=== PATIENT | male | born 1975 | race Caucasian/White ===

== ENCOUNTER → 2017-10-25 21:41 | Outpatient (CLI) | payer MEDICARE, MEDICAID, SELFPAY | DX: G47.33 Obstructive sleep apnea (adult) (pediatric) (principal) | CPT/HCPCS: 95811 ==

== ENCOUNTER 2020-10-04 22:35 | Emergency (ER) | payer MEDICARE, MEDICAID, SELFPAY ==
[2020-10-04 22:39] VITALS: BP 139/83; PULSE 101; RESP 17; TEMP 36.7; O2SAT 96; BMI 35.3
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
--- NOTE | 2020-10-04 23:21 | ED.RN ---
CRISIS PAGED TO TALK TO PATIENT AT THIS TIME
--- NOTE | 2020-10-04 23:36 | ED.RN ---
CRISIS SPEAKING WITH PATIENT AT THIS TIME
[2020-10-05 00:16] LABS: Absolute Lymphocyte Count 2.47 X10^3/uL (0.83-4.51); Absolute Neutrophil Count 8.1 X10^3/uL (2.0-7.7); Basophil# 0.07 X10^3/uL; Basophil% 0.6 % (0-1); Eosinophil# 0.27 X10^3/uL; Eosinophils% 2.2 % (0-5); Hematocrit 49.9 % (40-54); Hemoglobin 16.7 g/dL (13.0-16.5); Lymphocyte # 2.47 X10^3/ul (4.0); Lymphocyte % 20.5 % (19-41); Mean Corp Hgb Conc 33.5 g/dL (32-36); Mean Corpuscular Hgb 31.3 pg (27.0-32.0); Mean Corpuscular Volume 93.4 fL (80-94); Mean Platelet Vol. 9.4 fl (6.2-12.0); Monocyte# 1.07 X10^3/uL; Monocyte% 8.9 % (0-10); NRBC Flagged by Analyzer 0 % (0-5); Neutrophil # 8.12 X10^3/uL (2.7-7.7); Neutrophil % 67.3 % (47-70); Platelet Count 322 K/mm3 (150-450); RBC Distribution Width CV 12.2 % (11.6-14.6); RBC Distribution Width SD 42.3 fl (35.1-43.9); Red Blood Count 5.34 M/mm3 (4.6-6.2); White Blood Count 12.1 K/mm3 (4.4-11.0)
[2020-10-05 00:30] LABS: Anion Gap 2 (5-15); BUN 13 mg/dL (7-18); BUN/Creat Ratio 12.7 RATIO (10-20); Calcium,Total 9.4 mg/dL (8.5-10.1); Chloride 103 mmol/L (98-107); Creatinine, Serum 1.02 mg/dL (0.70-1.30); EST Glomerular Filtration Rate 85 mL/min (>60); Est Glom Filt Rate - Afr Amer 102 mL/min (>60); Estimated Creatinine Clearance 96.42 ml/min; Glucose 72 mg/dL (74-106); Potassium 3.7 mmol/L (3.5-5.1); Sodium Level 137 mmol/L (136-145)
[2020-10-05 00:39] LABS: Alcohol, Blood (Medical)-Serum < 3.0 mg/dL
[2020-10-05 01:10] LABS: Amphetamine Urine VISTA POSITIVE (<1000 ng/mL); Barbiturate Urine VISTA NEGATIVE (< 200 ng/mL); Benzodiazepine Urine VISTA NEGATIVE (< 200 ng/mL); Cocaine Urine VISTA NEGATIVE (< 300 ng/mL); Ecstacy Urine VISTA NEGATIVE (< 500 ng/mL); Methadone Urine VISTA NEGATIVE (< 300 ng/mL); PCP Urine VISTA NEGATIVE (< 25 ng/mL); THC Urine VISTA NEGATIVE (< 50 ng/mL); Vista UDS pH Range 5
--- NOTE | 2020-10-05 01:19 | ED.RN ---
FAXED LAB RESULTS OVER TO CRISIS.
[2020-10-05 03:00] VITALS: RESP 16
--- NOTE | 2020-10-05 03:39 | ED.RN ---
PT AMBULATES OUT OF DEPARTMENT WITHOUT DIFFICULTY. PT STATES HE HAS A PLAN TO GO TO HIS FRIENDS HOUSE IN [place], GO GET HIS MED AND FOLLOW UP WITH THE COUNSELING CENTER. DR. NOWAK AWARE OF PLAN AND OKAY'D FOR PT TO LEAVE.
== END 2020-10-05 03:42 | disposition home or self-care (01) ==
PROVIDERS: Emergency Provider Student in an Organized Health Care Education/Training Program
DX: F20.9 Schizophrenia, unspecified (principal); F31.9 Bipolar disorder, unspecified; I10 Essential (primary) hypertension; E11.9 Type 2 diabetes mellitus without complications; Z79.84 Long term (current) use of oral hypoglycemic drugs; Z79.899 Other long term (current) drug therapy; F17.200 Nicotine dependence, unspecified, uncomplicated
CPT/HCPCS: 36415; 80048; 80307; 82077; 85025; 87426; 99282

== ENCOUNTER 2020-10-06 04:27 | Emergency (ER) | payer MEDICARE, MEDICAID, SELFPAY ==
[2020-10-06 04:29] VITALS: BP 140/78; PULSE 95; RESP 16; TEMP 36.8; O2SAT 98; BMI 33.5
--- NOTE | 2020-10-06 04:37 | ED.RN ---
THIS NURSE IS UNABLE TO UNDERSTAND THE PT WHEN HE IS SPEAKING. QUICKLY FALLS ASLEEP WHILE ATTEMPTING TO COMPLETE ASSESSMENT. PT FALLING ASLEEP IN BETWEEN QUESTIONS. PT ADMITS HE IS HOMELESS AND HE WAS COLD OUTSIDE.
[2020-10-06 04:46] LABS: Bedside Glucose 187 mg/dL (70-110)
--- NOTE | 2020-10-06 04:46 | ED.VIS.GEN ---
History of Present Illness Chief Complaint: General Illness Narrative: Patient presenting for evaluation by EMS secondary to homelessness. Patient is currently homeless and is living on the streets. He apparently was wandering around tonight without a place to stay. EMS was contacted and the patient was brought to the emergency department. Patient does have an underlying psychiatric history. He is on Seroquel, has an underlying history of schizophrenia. He does hear voices intermittently. He denies that he suicidal or homicidal. He denies any command hallucinations or concerns for his safety at this time. He was seen in the emergency department for similar episode 2 days ago, and was given resources within the counseling center was not felt to be a danger to himself and was discharged. Patient is denying any somatic complaints at this time other than the fact that he is hungry. Past Medical History - Allergies and Home Meds Allergies/Adverse Reactions: Allergies No Known Allergies Allergy (Verified 10/06/20 04:32) Primary Care Physician: Care Physician,No Primary [Primary Care Provider] - Prior records reviewed: Yes Past Medical History: - - Diabetes, hypertension, schizophrenia Surgical History: noncontributory Lives: Homeless Smoking Status: Unknown if ever smoked Alcohol: None - Denies alcohol use Drugs: - - History of amphetamine use Review of Systems General: Reports: - - Patient is hungry Eyes: Denies: Visual changes - bilaterally, Diplopia ENT: Denies: Rhinorrhea, Sore throat Cardiovascular: Denies: Chest pain, Palpitations Respiratory: Denies: Dyspnea, Cough, Dyspnea on exertion Gastrointestinal: Denies: Abdominal pain, Nausea, Vomiting, Diarrhea, Melena, Hematochezia Genitourinary: Denies: Dysuria, Hematuria, Frequency Musculoskeletal: Denies: Back pain, Extremity Pain Skin: Denies: Rash, Wounds Neurological: Denies: Headache, Weakness, Numbness Psych: Reports: - - Patient does endorse some hallucinations. Denies: Depression, Anxiety, Suicidal thoughts, Suicidal ideations Physical Exam Vital Signs/Narrative: Vital Signs Temp Pulse Resp BP Pulse Ox 10/06/20 04:29 98.2 F 95 16 140/78 H 98 Inital Vital Signs reviewed: Yes General: Well nourished, Unkempt Head: Normocephalic, Atraumatic Eyes: Perrl, EOMI ENT: Moist mucous membranes, No rhinorrhea Neck: Supple, Nontender Cardiovascular: Regular rate, Regular rhythm, No murmurs Respiratory: No distress, CTA bilaterally, Chest nontender Abdomen: Soft, Nontender, Nondistended, Normal bowel sounds Extremities: Nontender, No edema, - - Hands are cold to touch with somewhat delayed capillary refill Skin: Normal color, No rash Neurological: Alert, - - Patient has no apparent lateralizing deficits. He has slurred difficult to understand speech which from review of the patient's chart seems to be at his baseline. Diagnostic/Tx/Re-eval - Medical Decision Making Patient presented to the emergency department basically due to homelessness. Patient does not appear to have hypothermia or frostbite or frostnip at this time. He was given a warm blanket. Blood glucose was checked on the patient he was found to be in the 180s not hypoglycemic. Patient seems to have this element of difficult understand speech which appears to be at his baseline. He does not appear to be acutely psychiatrically unstable. Patient will be allowed to rest in the emergency department as we currently have capacity until morning at which point he would be discharged. Patient is to follow-up with the counseling center as previously instructed, and was instructed to utilize the [facility] for [facility]. ED Disposition - Plan for ED Patient: Disposition: Home or Assisted Living Diagnosis: Homelessness Instructions: ED Medical Screening Exam, Nonemergent Referrals: Counseling,Center [GROUP OF PHYSICIANS] - As soon as possible
--- NOTE | 2020-10-06 07:25 | ED.RN ---
Pt was being allowed to stay here until morning to sleep off his high. pt woke up and urinated all over the floor. Pt told he could leave and was discharged
== END 2020-10-06 07:27 | disposition home or self-care (01) ==
PROVIDERS: Emergency Provider Emergency Medicine
DX: F20.9 Schizophrenia, unspecified (principal); I10 Essential (primary) hypertension; Z59.0 Homelessness; E11.9 Type 2 diabetes mellitus without complications; Z79.84 Long term (current) use of oral hypoglycemic drugs; Z79.899 Other long term (current) drug therapy
CPT/HCPCS: 82962; 99284

== ENCOUNTER 2020-10-07 03:56 | Emergency (ER) | payer MEDICARE, MEDICAID, SELFPAY ==
[2020-10-06 04:29] VITALS: BMI 33.5
[2020-10-07] VITALS (7 sets, daily range): BP systolic 146–168; BP diastolic 80–110; PULSE 60–86; RESP 14–18; TEMP 36.5; O2SAT 95–99; BMI 35.3
[2020-10-07 04:55] LABS: Absolute Lymphocyte Count 1.99 X10^3/uL (0.83-4.51); Absolute Neutrophil Count 7.3 X10^3/uL (2.0-7.7); Basophil# 0.06 X10^3/uL; Basophil% 0.6 % (0-1); Eosinophil# 0.17 X10^3/uL; Eosinophils% 1.6 % (0-5); Hemoglobin 15.9 g/dL (13.0-16.5); Lymphocyte # 1.99 X10^3/ul (4.0); Lymphocyte % 19.3 % (19-41); Mean Corp Hgb Conc 32.4 g/dL (32-36); Mean Corpuscular Hgb 30.9 pg (27.0-32.0); Mean Corpuscular Volume 95.1 fL (80-94); Mean Platelet Vol. 9.4 fl (6.2-12.0); Monocyte# 0.73 X10^3/uL; Monocyte% 7.1 % (0-10); NRBC Flagged by Analyzer 0 % (0-5); Neutrophil % 70.8 % (47-70); Platelet Count 324 K/mm3 (150-450); RBC Distribution Width CV 12.4 % (11.6-14.6); RBC Distribution Width SD 43.7 fl (35.1-43.9); Red Blood Count 5.15 M/mm3 (4.6-6.2); White Blood Count 10.3 K/mm3 (4.4-11.0)
[2020-10-07 05:14] LABS: Alcohol, Blood (Medical)-Serum < 3.0 mg/dL
[2020-10-07 05:17] LABS: Anion Gap 6 (5-15); BUN 9 mg/dL (7-18); BUN/Creat Ratio 9.3 RATIO (10-20); Calcium,Total 9.1 mg/dL (8.5-10.1); Chloride 103 mmol/L (98-107); Creatinine, Serum 0.97 mg/dL (0.70-1.30); EST Glomerular Filtration Rate 90 mL/min (>60); Est Glom Filt Rate - Afr Amer 108 mL/min (>60); Estimated Creatinine Clearance 101.39 ml/min; Glucose 166 mg/dL (74-106); Potassium 3.8 mmol/L (3.5-5.1); Sodium Level 138 mmol/L (136-145)
--- NOTE | 2020-10-07 05:58 | ED.DCSUM_ITS ---
- ER Visit Summary Date of Service: 10/07/20 Chief Complaint: [Depression and suicidal ideation] History of Present Illness: The patient is a 45 M [presents to the emergency department today via police escort. Patient apparently was walking down a dark highway when police stopped him. Patient has been to our emergency department each of the last prior 2 nights. Patient has history of schizophrenia and apparently is from the [place] area. Patient states that he has been feeling more depressed of late and has been having suicidal thoughts. Patient has been having thoughts of jumping out in front of a snowplow. He has been hearing voices but really cannot tell me what they say to him. He denies any homicidal ideations. He denies recent illness. Patient is currently homeless.] Physical Examination: [HEENT-PERRLA, EOMI. Cranial nerves II through XII grossly intact. TMs clear. Mucous membranes moist. No adenopathy. Cardiovascular-regular rate and rhythm without murmur or ectopy Lungs-clear to auscultation, chest wall stable without crepitus or subcu emphysema Abdomen-normoactive bowel sounds, soft, nontender, no rebound or rigidity, no peritoneal signs. Extremities-intact ?4, normal range of motion, normal pulses, atraumatic] Test Results: [CBC with differential was normal. Chemistries unremarkable. Toxicology screen was negative. Alcohol was negative. COVID-19 test negative.] Emergency Department Course and Treatment: [Patient was evaluated by crisis and they will attempt to find placement for patient] Treatment Plan: [Transfer to psychiatric facility] Disposition: [Transfer] Impression: [Depression Suicidal ideation] This note was generated with [employer] dictation software. It may contain incorrect words, spelling, and punctuation that were not noted in review of the chart prior to signing ED Disposition - Plan for ED Patient: Referrals: Care Physician,No Primary [Primary Care Provider] -
--- NOTE | 2020-10-07 06:24 | ED.RN ---
CRISIS PAGED AT [id number], AND REPORT FAXED
--- NOTE | 2020-10-07 06:54 | ED.RN ---
crisis called and is speaking with patient at this time
--- NOTE | 2020-10-07 09:04 | ED.RN ---
attempted to call report to Guillermo Mario, no answer.
--- NOTE | 2020-10-07 09:07 | ED.RN ---
2nd attempt to call [place] for report, no answer.
--- NOTE | 2020-10-07 09:31 | ED.RN ---
beltran will call back.
--- NOTE | 2020-10-07 10:11 | ED.RN ---
report given to veronica
== END 2020-10-07 10:45 ==
LOC: ED 04:35
PROVIDERS: Emergency Provider Emergency Medicine
DX: F32.9 Major depressive disorder, single episode, unspecified (principal); R45.851 Suicidal ideations; F20.9 Schizophrenia, unspecified; Z59.0 Homelessness; Z79.899 Other long term (current) drug therapy; Z72.0 Tobacco use
CPT/HCPCS: 80048; 80307; 82077; 85025; 87426; 99285

== ENCOUNTER 2020-10-14 20:22 | Emergency (ER) | payer MEDICARE, MEDICAID, SELFPAY ==
[2020-10-07 03:59] VITALS: BMI 35.3
[2020-10-14 20:25] VITALS: BP 146/89; PULSE 100; RESP 16; TEMP 36.7; O2SAT 96; BMI 33.5
--- NOTE | 2020-10-14 21:12 | ED.DCSUM_ITS ---
History of Present Illness Chief Complaint: Other, Pain/Inj Detail of Chief Complaint: Arthralgias/body aches Informant: Patient Onset: Days - Several unsure of exactly how many Context: Gradual Onset Timing: Continuous Quality: Achy Location: All over especially joints Current Severity: Severe Maximum Severity: Severe Worsened by: Moving Relieved by: Remaining still Associated Symptoms: Feels cold Narrative: Patient presents saying that he also wants to know if we have any resources. He states that he inadvertently lost his medications and has been out of them for the last week or 1.5 weeks, for schizophrenia and prediabetes. He is feeling achy all over. He denies being around anybody that he knows of with COVID-19 but states that he is homeless and wants to know if we have a place for him to stay. He presents at night. He denies loss of taste/smell, fevers or chills, cough, shortness of breath, chest or abdominal pain, nausea, vomiting, diarrhea. - Past Medical History (1) Schizophrenia Status: Chronic (2) Prediabetes Status: Chronic Past Medical History - Allergies and Home Meds Allergies/Adverse Reactions: Allergies No Known Allergies Allergy (Verified 10/14/20 20:24) Primary Care Physician: Care Physician,No Primary [Primary Care Provider] - Lives: Homeless Smoking Status: Current every day smoker Review of Systems General: Reports: Malaise. Denies: Chills, Fever, Sweats Eyes: Denies: Visual changes - bilaterally, Diplopia ENT: Denies: Rhinorrhea, Sore throat Cardiovascular: Denies: Chest pain, Palpitations Respiratory: Denies: Dyspnea, Cough, Dyspnea on exertion Gastrointestinal: Denies: Abdominal pain, Nausea, Vomiting, Diarrhea, Melena, Hematochezia Genitourinary: Denies: Dysuria, Hematuria, Frequency Musculoskeletal: Reports: Myalgias, Arthralgias. Denies: Neck pain, Back pain, Swelling, Extremity Pain Skin: Denies: Rash, Wounds Neurological: Denies: Headache, Weakness, Numbness Endocrine: Reports: Cold intolerance Physical Exam Vital Signs/Narrative: Vital Signs Temp Pulse Resp BP Pulse Ox 10/14/20 20:25 98.1 F 100 16 146/89 H 96 Inital Vital Signs reviewed: Yes General: Well nourished, Well developed, Unkempt, No Acute Distress Head: Normocephalic, Atraumatic Eyes: Perrl, EOMI ENT: Moist mucous membranes, No rhinorrhea Neck: Supple, Nontender Cardiovascular: Regular rate, Regular rhythm, No murmurs. Negative for: Tachycardia Respiratory: No distress, CTA bilaterally, Chest nontender Abdomen: Soft, Nontender, Nondistended, Normal bowel sounds Back: Nontender, Normal Inspection Extremities: Nontender, No edema, - - I am able to range his arms and legs without any difficulty. No joints are erythematous or swollen. He is able to walk.. Negative for: Calf Tenderness Skin: Normal color, No rash, No Trauma Neurological: Alert, Oriented x3, Cranial nerves II-XII grossly intact, Normal Strength, Normal Sensation Psychological: Normal Mood, - - Anxious and somewhat tremulous. Not delusional or objectively hallucinating. Logical goal-directed thoughts. No suicidal or homicidal ideation verbalized. Diagnostic/Tx/Re-eval Laboratory Tests 10/14/20 10/14/20 10/14/20 Range/Units 22:31 22:31 21:55 WBC 12.0 H (4.4-11.0) K/mm3 RBC 4.76 (4.6-6.2) M/mm3 Hgb 14.6 (13.0-16.5) g/dL Hct 44.3 (40-54) % MCV 93.1 (80-94) fL MCH 30.7 (27.0-32.0) pg MCHC 33.0 (32-36) g/dL RDW Std Deviation 43.3 (35.1-43.9) fl RDW Coeff of Naomi 12.6 (11.6-14.6) % Plt Count 344 (150-450) K/mm3 MPV 9.6 (6.2-12.0) fl Immature Gran % (Auto) 0.700 (0.0-0.9) % Neut % (Auto) 66.5 (47-70) % Lymph % (Auto) 19.4 (19-41) % [place] % (Auto) 11.4 H (0-10) % Eos % (Auto) 1.5 (0-5) % Baso % (Auto) 0.5 (0-1) % Absolute Neuts (auto) 8.0 H (2.0-7.7) X10^3/uL Absolute Lymphs (auto) 2.33 (0.83-4.51) X10^3/uL Nucleated RBC % 0 (0-5) % Sodium 138 (136-145) mmol/L Potassium 3.9 (3.5-5.1) mmol/L Chloride 104 (98-107) mmol/L Carbon Dioxide 27.0 (21.0-32.0) mmol/L Anion Gap 7 (5-15) BUN 17 (7-18) mg/dL Creatinine 0.81 (0.70-1.30) mg/dL Estim Creat Clear Calc 121.42 ml/min Est GFR (MDRD) Af Amer 133 (>60) mL/min Est GFR (MDRD) Non-Af 110 (>60) mL/min BUN/Creatinine Ratio 20.9 H (10-20) RATIO Glucose 84 (74-106) mg/dL Calcium 9.0 (8.5-10.1) mg/dL Total Creatine Kinase 485 H (39-308) U/L TSH 2.17 (0.358-3.74) uIU/mL Urine Color (Yellow) Urine Clarity (Clear) Urine pH (5.0 - 8.0) Ur Specific [place] (1.002-1.030) Urine Protein (Negative) mg/dl Urine Glucose (UA) (Normal) mg/dl Urine Ketones (Negative) mg/dl Urine Occult Blood (Negative) /ul Urine Nitrite (Negative) Urine Bilirubin (Negative) mg/dL Urine Urobilinogen (Normal) mg/dl Ur Leukocyte Esterase (Negative) /ul Urine RBC (0-5) /hpf Urine WBC (0-5) /hpf Ur Squamous Epith Cells (0-5) /hpf Urine Bacteria (None Seen) /hpf Urine Mucus (<or=2+) /hpf Urine Opiates Screen (< 300 ng/mL) Urine Methadone Screen (< 300 ng/mL) Ur Barbiturates Screen (< 200 ng/mL) Ur Phencyclidine Scrn (< 25 ng/mL) Ur Amphetamines Screen (<1000 ng/mL) U Methamphetamin-MDMA (< 500 ng/mL) U Benzodiazepines Scrn (< 200 ng/mL) Urine Cocaine Screen (< 300 ng/mL) U Cannabinoids Screen (< 50 ng/mL) Ur Drug Screen Comment Ethyl Alcohol < 3.0 mg/dL POC Glucose (70-110) mg/dL 10/14/20 10/14/20 10/14/20 Range/Units 21:28 21:28 21:21 WBC (4.4-11.0) K/mm3 RBC (4.6-6.2) M/mm3 Hgb (13.0-16.5) g/dL Hct (40-54) % MCV (80-94) fL MCH (27.0-32.0) pg MCHC (32-36) g/dL RDW Std Deviation (35.1-43.9) fl RDW Coeff of Naomi (11.6-14.6) % Plt Count (150-450) K/mm3 MPV (6.2-12.0) fl Immature Gran % (Auto) (0.0-0.9) % Neut % (Auto) (47-70) % Lymph % (Auto) (19-41) % [place] % (Auto) (0-10) % Eos % (Auto) (0-5) % Baso % (Auto) (0-1) % Absolute Neuts (auto) (2.0-7.7) X10^3/uL Absolute Lymphs (auto) (0.83-4.51) X10^3/uL Nucleated RBC % (0-5) % Sodium (136-145) mmol/L Potassium (3.5-5.1) mmol/L Chloride (98-107) mmol/L Carbon Dioxide (21.0-32.0) mmol/L Anion Gap (5-15) BUN (7-18) mg/dL Creatinine (0.70-1.30) mg/dL Estim Creat Clear Calc ml/min Est GFR (MDRD) Af Amer (>60) mL/min Est GFR (MDRD) Non-Af (>60) mL/min BUN/Creatinine Ratio (10-20) RATIO Glucose (74-106) mg/dL Calcium (8.5-10.1) mg/dL Total Creatine Kinase (39-308) U/L TSH (0.358-3.74) uIU/mL Urine Color Yellow (Yellow) Urine Clarity Clear (Clear) Urine pH 5.0 (5.0 - 8.0) Ur Specific [place] 1.015 (1.002-1.030) Urine Protein Negative (Negative) mg/dl Urine Glucose (UA) Normal (Normal) mg/dl Urine Ketones Negative (Negative) mg/dl Urine Occult Blood Negative (Negative) /ul Urine Nitrite Negative (Negative) Urine Bilirubin Negative (Negative) mg/dL Urine Urobilinogen Normal (Normal) mg/dl Ur Leukocyte Esterase Negative (Negative) /ul Urine RBC 0 SEEN (0-5) /hpf Urine WBC 0 SEEN (0-5) /hpf Ur Squamous Epith Cells 0 SEEN (0-5) /hpf Urine Bacteria 0 SEEN (None Seen) /hpf Urine Mucus 0 SEEN (<or=2+) /hpf Urine Opiates Screen NEGATIVE (< 300 ng/mL) Urine Methadone Screen NEGATIVE (< 300 ng/mL) Ur Barbiturates Screen NEGATIVE (< 200 ng/mL) Ur Phencyclidine Scrn NEGATIVE (< 25 ng/mL) Ur Amphetamines Screen NEGATIVE (<1000 ng/mL) U Methamphetamin-MDMA NEGATIVE (< 500 ng/mL) U Benzodiazepines Scrn NEGATIVE (< 200 ng/mL) Urine Cocaine Screen NEGATIVE (< 300 ng/mL) U Cannabinoids Screen NEGATIVE (< 50 ng/mL) Ur Drug Screen Comment Ethyl Alcohol mg/dL POC Glucose 103 (70-110) mg/dL - Medical Decision Making Labs and toxicology are unremarkable except for a slightly elevated CPK. His urinalysis and renal function are normal, suggesting he does not have myoglobinuria or renal failure as result. He does not have high enough CPK to suggest rhabdomyolysis. All of the compartments of all 4 extremities are soft and nondistended nontender, he suggests that his primary reason for being here is that he is homeless. I advised that we are not penitentiary but we do screen people medically, which we have done and he has no medical emergency. I offered to refill his prescriptions for 2 weeks, and he was appreciative of this. He was given a couple of his medication doses here prior to discharge. ED Disposition - Plan for ED Patient: Disposition: Home or Assisted Living Diagnosis: Myalgia, Encounter for medication refill, Schizophrenia, Prediabetes Instructions: ED Myalgias Prescriptions: Glipizide [Glipizide ER] 10 mg PO DAILY #14 tab Prescription Printed Quetiapine Fumarate 200 mg PO DAILY #14 tab Prescription Printed Risperidone [Risperdal] 3 mg PO DAILY #14 tab Prescription Printed Lisinopril [Zestril] 20 mg PO DAILY #14 tab Prescription Printed Referrals: Ashley Reyes [NON-STAFF] - (within next 1-2 weeks -- call for appt)
[2020-10-14 21:31] LABS: Bedside Glucose 103 mg/dL (70-110)
[2020-10-14 21:40] LABS: Bacteria 0 SEEN /hpf (None Seen); Mucous, Urine 0 SEEN /hpf (<or=2+); Red Blood Cells-Urine 0 SEEN /hpf (0-5); Squamous Epithelial Cells - UA 0 SEEN /hpf (0-5); White Blood Cells 0 SEEN /hpf (0-5)
[2020-10-14 21:45] LABS: Color, Urine Yellow (Yellow); Glucose, Dipstick Normal (Normal); Ketone-Dipstick Negative (Negative); Leukocyte Esterase-Dipstick Negative /ul (Negative); Nitrite-Dipstick Negative (Negative); Occult Blood-Urine Negative /ul (Negative); Protein-Dipstick Negative (Negative); Specific Gravity, Urine 1.015 (1.002-1.030); Urine Bilirubin Dipstick Negative (Negative); Urine Clarity Clear (Clear); Urine Urobilinogen Normal (Normal)
[2020-10-14 22:13] LABS: Amphetamine Urine VISTA NEGATIVE (<1000 ng/mL); Barbiturate Urine VISTA NEGATIVE (< 200 ng/mL); Benzodiazepine Urine VISTA NEGATIVE (< 200 ng/mL); Cocaine Urine VISTA NEGATIVE (< 300 ng/mL); Ecstacy Urine VISTA NEGATIVE (< 500 ng/mL); Methadone Urine VISTA NEGATIVE (< 300 ng/mL); PCP Urine VISTA NEGATIVE (< 25 ng/mL); THC Urine VISTA NEGATIVE (< 50 ng/mL); Vista UDS pH Range 5
[2020-10-14 22:23] LABS: Anion Gap 7 (5-15); BUN 17 mg/dL (7-18); BUN/Creat Ratio 20.9 RATIO (10-20); CPK Total, Creatine Kinase 485 U/L (39-308); Chloride 104 mmol/L (98-107); Creatinine, Serum 0.81 mg/dL (0.70-1.30); EST Glomerular Filtration Rate 110 mL/min (>60); Est Glom Filt Rate - Afr Amer 133 mL/min (>60); Estimated Creatinine Clearance 121.42 ml/min; Glucose 84 mg/dL (74-106); Potassium 3.9 mmol/L (3.5-5.1); Sodium Level 138 mmol/L (136-145); Thyroid Stim Hormone (TSH) 2.17 uIU/mL (0.358-3.74)
[2020-10-14 22:36] LABS: Absolute Lymphocyte Count 2.33 X10^3/uL (0.83-4.51); Basophil# 0.06 X10^3/uL; Basophil% 0.5 % (0-1); Eosinophil# 0.18 X10^3/uL; Eosinophils% 1.5 % (0-5); Hematocrit 44.3 % (40-54); Hemoglobin 14.6 g/dL (13.0-16.5); Lymphocyte # 2.33 X10^3/ul (4.0); Lymphocyte % 19.4 % (19-41); Mean Corpuscular Hgb 30.7 pg (27.0-32.0); Mean Corpuscular Volume 93.1 fL (80-94); Mean Platelet Vol. 9.6 fl (6.2-12.0); Monocyte# 1.37 X10^3/uL; Monocyte% 11.4 % (0-10); NRBC Flagged by Analyzer 0 % (0-5); Neutrophil # 7.96 X10^3/uL (2.7-7.7); Neutrophil % 66.5 % (47-70); Platelet Count 344 K/mm3 (150-450); RBC Distribution Width CV 12.6 % (11.6-14.6); RBC Distribution Width SD 43.3 fl (35.1-43.9); Red Blood Count 4.76 M/mm3 (4.6-6.2)
[2020-10-14 23:00] LABS: Alcohol, Blood (Medical)-Serum < 3.0 mg/dL
[2020-10-14] MEDS: Ketorolac 30 MG/ML Syringe IM (23:13)
[2020-10-14] MEDS: RisperiDONE 1 MG Tablet 3 MG PO (23:43)
[2020-10-14] MEDS: QUEtiapine 100 MG Tablet 200 MG PO (23:43)
[2020-10-15 00:05] VITALS: RESP 16
== END 2020-10-15 00:06 | disposition home or self-care (01) ==
PROVIDERS: Emergency Provider Emergency Medicine
DX: M79.10 Myalgia, unspecified site (principal); Z76.0 Encounter for issue of repeat prescription; F20.9 Schizophrenia, unspecified; R73.03 Prediabetes; Z59.0 Homelessness; Z79.84 Long term (current) use of oral hypoglycemic drugs; Z79.899 Other long term (current) drug therapy; F17.200 Nicotine dependence, unspecified, uncomplicated
CPT/HCPCS: 80048; 80307; 81001; 82077; 82550; 82962; 84443; 85025; 96372; 99285

== ENCOUNTER 2020-11-30 02:00 | Emergency (ER) | payer MEDICARE, MEDICAID, SELFPAY ==
[2020-11-30 02:01] VITALS: BP 181/97; PULSE 78; RESP 16; TEMP 36.9; O2SAT 100; BMI 37.0
--- NOTE | 2020-11-30 02:14 | RAD_ITS ---
STUDY: X-RAY - RIGHT ANKLE REASON FOR EXAM: Male, 45 years old. injury TECHNIQUE: 3 view(s) of the ankle. COMPARISON: None. FINDINGS: Normal visualized distal tibia and fibula. Normal medial and lateral malleoli. Normal tibiotalar articulation and ankle mortise. Mild enthesophyte at the Achilles tendon insertion site otherwise normal visualized talus and calcaneus. The visualized subtalar, talonavicular, calcaneocuboid and tarsal articulations are normal. There is no demonstrated fracture. Soft tissue swelling surrounding the ankle mortise of the lateral malleolus. RAD/Ankle min 3 Views IMPRESSION: Soft tissue swelling as described otherwise normal x-ray examination of the ankle. Electronically Signed: Katerine Solomon MD at 3:12 EDT , Service support ,
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
[2020-11-30] MEDS: Ketorolac 30 MG/ML Syringe IM (02:27)
== END 2020-11-30 04:10 | disposition home or self-care (01) ==
PROVIDERS: Emergency Provider Emergency Medicine
DX: S93.401A Sprain of unspecified ligament of right ankle, initial encounter (principal); X50.1XXA Overexertion from prolonged static or awkward postures, initial encounter; Y93.02 Activity, running; Y92.9 Unspecified place or not applicable; E11.9 Type 2 diabetes mellitus without complications; F20.9 Schizophrenia, unspecified; F17.200 Nicotine dependence, unspecified, uncomplicated; Z79.84 Long term (current) use of oral hypoglycemic drugs; Z79.899 Other long term (current) drug therapy
CPT/HCPCS: 73610; 96372; 99284; A4216

== ENCOUNTER 2020-12-03 04:19 | Emergency (ER) | payer MEDICARE, MEDICAID, SELFPAY ==
[2020-12-03 04:22] VITALS: BP 155/99; PULSE 86; RESP 16; TEMP 37.2; O2SAT 99; BMI 34.0
--- NOTE | 2020-12-03 04:59 | ED.VIS.GEN ---
History of Present Illness Chief Complaint: Mental Health Informant: Patient Narrative: Patient is a 45-year-old male with history of schizophrenia and hypertension presenting for resources. Patient states his meds are wearing off and he cannot afford new medications. He supposed to be on Seroquel as well as lisinopril and a cholesterol medication. Patient states that he recently came to [place] was dropped off by his son and has not been able to get back to [place] where he has a check waiting for him. He states his doctor is also in [place]. Patient states he has not had anywhere to sleep and is been homeless for the past few nights. He did notice do so he came to the emergency room. Patient states he is not followed with crisis before. Patient denies any acute physical complaints. Patient denies any homicidal suicidal ideations. Chart review shows that patient has had prior visits with very similar stories including his son dropping him off and his resources all being in [place], most recently 1 month ago. Past Medical History - Allergies and Home Meds Allergies/Adverse Reactions: Allergies No Known Allergies Allergy (Verified 12/03/20 04:20) Primary Care Physician: Care Physician,No Primary [Primary Care Provider] - Past Medical History: - - Hypertension, schizoaffective disorder, bipolar disorder Lives: Homeless Smoking Status: Current every day smoker Review of Systems General: Denies: Chills, Fever, Sweats Eyes: Denies: Visual changes - bilaterally, Diplopia ENT: Denies: Rhinorrhea, Sore throat Cardiovascular: Denies: Chest pain, Palpitations Respiratory: Denies: Dyspnea, Cough, Dyspnea on exertion Gastrointestinal: Denies: Abdominal pain, Nausea, Vomiting, Diarrhea, Melena, Hematochezia Genitourinary: Denies: Dysuria, Hematuria, Frequency Musculoskeletal: Denies: Back pain, Extremity Pain Skin: Denies: Rash, Wounds Neurological: Denies: Headache, Weakness, Numbness Psych: Reports: Depression. Denies: Suicidal thoughts, Suicidal ideations Physical Exam Vital Signs/Narrative: Vital Signs Temp Pulse Resp BP Pulse Ox 12/03/20 04:22 98.9 F 86 16 155/99 H 99 Inital Vital Signs reviewed: Yes General: Well nourished, Well developed, No Acute Distress Head: Normocephalic, Atraumatic Eyes: Perrl, EOMI ENT: Moist mucous membranes, No rhinorrhea Neck: Supple, Nontender Cardiovascular: Regular rate, Regular rhythm, No murmurs Respiratory: No distress, CTA bilaterally, Chest nontender Abdomen: Soft, Nontender, Nondistended, Normal bowel sounds Back: Nontender, Normal Inspection Extremities: Nontender, No edema Skin: Normal color, No rash Neurological: Alert, Oriented x3, Cranial nerves II-XII grossly intact, Normal Strength, Normal Sensation Psychological: Normal affect, Normal Mood, - - Patient has slightly tangential speech but is behaving appropriate. denies any suicidal ideations. Denies any hallucinations. Diagnostic/Tx/Re-eval - Medical Decision Making Patient is evaluated for request of resources. He is homeless and has psychiatric issues. He is unable to get his medications filled and apparently all his resources are in [place] and he cannot get back there. Patient been seen multiple times in our ER for the same complaint over the past few months. He does denies any homicidal suicidal lesions. He is more so concerned that it is cold outside and he is hungry. Patient is given some food in the ER. Crisis evaluates him and set up outpatient follow-up at their facilities. Patient is given their address. Patient does not meet criteria for inpatient psych at this time. Patient is counseled on signs and symptoms requiring return to the emergency room. Patient verbalizes agreement and understand this plan. Patient discharged home in stable and improved condition. ED Disposition - Plan for ED Patient: Disposition: Home or Assisted Living Diagnosis: Depression, Homelessness Instructions: ED Depression Referrals: Counseling,Center [GROUP OF PHYSICIANS] - Additional Instructions: Please follow-up with the counseling center later today. The address is [facility] [address] and her phone number is [phone]
--- NOTE | 2020-12-03 06:05 | ED.RN ---
PATIENT ON THE PHONE WITH CRISIS AT THIS TIME
[2020-12-03 06:19] VITALS: RESP 14
[2020-12-03 06:54] VITALS: BP 145/80; PULSE 84; RESP 16; O2SAT 96
== END 2020-12-03 06:55 | disposition home or self-care (01) ==
PROVIDERS: Emergency Provider Emergency Medicine
DX: F31.9 Bipolar disorder, unspecified (principal); F25.9 Schizoaffective disorder, unspecified; Z59.0 Homelessness; I10 Essential (primary) hypertension; R73.03 Prediabetes; Z79.84 Long term (current) use of oral hypoglycemic drugs; Z79.899 Other long term (current) drug therapy; F17.200 Nicotine dependence, unspecified, uncomplicated
CPT/HCPCS: 99284

== ENCOUNTER 2020-12-03 16:25 | Emergency (ER) | payer MEDICARE, MEDICAID, SELFPAY ==
[2020-12-03 04:22] VITALS: BMI 34.0
[2020-12-03 16:26] VITALS: BP 166/94; PULSE 86; RESP 14; TEMP 36.8; O2SAT 93; BMI 32.6
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
[2020-12-03 17:16] LABS: Absolute Lymphocyte Count 1.86 X10^3/uL (0.83-4.51); Absolute Neutrophil Count 8.4 X10^3/uL (2.0-7.7); Basophil# 0.07 X10^3/uL; Basophil% 0.6 % (0-1); Eosinophil# 0.25 X10^3/uL; Eosinophils% 2.1 % (0-5); Hematocrit 45.9 % (40-54); Lymphocyte # 1.86 X10^3/ul (4.0); Lymphocyte % 15.7 % (19-41); Mean Corp Hgb Conc 32.7 g/dL (32-36); Mean Corpuscular Volume 94.8 fL (80-94); Mean Platelet Vol. 10.1 fl (6.2-12.0); Monocyte# 1.15 X10^3/uL; Monocyte% 9.7 % (0-10); NRBC Flagged by Analyzer 0 % (0-5); Neutrophil # 8.44 X10^3/uL (2.7-7.7); Neutrophil % 71.4 % (47-70); Platelet Count 260 K/mm3 (150-450); RBC Distribution Width SD 48.9 fl (35.1-43.9); Red Blood Count 4.84 M/mm3 (4.6-6.2); White Blood Count 11.8 K/mm3 (4.4-11.0)
[2020-12-03 17:23] LABS: Alcohol, Blood (Medical)-Serum < 3.0 mg/dL
[2020-12-03 17:29] LABS: ALB/GLOB Ratio 1.2 RATIO (0.9-2.4); AST(SGOT) 15 U/L (15-37); Alanine Aminotransfer ALT/SGPT 23 U/L (16-61); Albumin, Serum 3.8 g/dL (3.2-5.0); Alkaline Phosphatase 83 U/L (45-117); Anion Gap 4 (5-15); BUN 11 mg/dL (7-18); BUN/Creat Ratio 12.4 RATIO (10-20); Calcium,Total 8.9 mg/dL (8.5-10.1); Chloride 107 mmol/L (98-107); Creatinine, Serum 0.89 mg/dL (0.70-1.30); EST Glomerular Filtration Rate 99 mL/min (>60); Est Glom Filt Rate - Afr Amer 120 mL/min (>60); Globulin 3.2 g/dL (2.2-4.2); Glucose 87 mg/dL (74-106); Potassium 3.7 mmol/L (3.5-5.1); Sodium Level 140 mmol/L (136-145)
[2020-12-03 18:17] LABS: Amphetamine Urine VISTA NEGATIVE (<1000 ng/mL); Barbiturate Urine VISTA NEGATIVE (< 200 ng/mL); Benzodiazepine Urine VISTA NEGATIVE (< 200 ng/mL); Cocaine Urine VISTA NEGATIVE (< 300 ng/mL); Ecstacy Urine VISTA NEGATIVE (< 500 ng/mL); Methadone Urine VISTA NEGATIVE (< 300 ng/mL); PCP Urine VISTA NEGATIVE (< 25 ng/mL); THC Urine VISTA NEGATIVE (< 50 ng/mL); Vista UDS pH Range 6
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
== END 2020-12-03 18:42 | disposition home or self-care (01) ==
PROVIDERS: Emergency Provider Emergency Medicine
DX: F25.0 Schizoaffective disorder, bipolar type (principal); R45.851 Suicidal ideations; Z59.0 Homelessness; S90.822A Blister (nonthermal), left foot, initial encounter; S90.821A Blister (nonthermal), right foot, initial encounter; X58.XXXA Exposure to other specified factors, initial encounter; Y93.9 Activity, unspecified; Y92.9 Unspecified place or not applicable; I10 Essential (primary) hypertension; E78.5 Hyperlipidemia, unspecified; R73.03 Prediabetes; E66.9 Obesity, unspecified; Z68.32 Body mass index [BMI] 32.0-32.9, adult; Z79.84 Long term (current) use of oral hypoglycemic drugs; Z79.899 Other long term (current) drug therapy; F17.210 Nicotine dependence, cigarettes, uncomplicated
CPT/HCPCS: 80053; 80307; 82077; 85025; 99284

== ENCOUNTER 2020-12-03 23:22 | Emergency (ER) | payer MEDICARE, MEDICAID, SELFPAY ==
[2020-12-03 16:26] VITALS: BMI 32.6
[2020-12-03 23:25] VITALS: BP 151/98; PULSE 80; RESP 16; TEMP 36.6; O2SAT 94; BMI 33.4
--- NOTE | 2020-12-04 00:02 | CT_ITS ---
STUDY: CT ABDOMEN AND PELVIS WITHOUT CONTRAST REASON FOR EXAM: Male, 45 years old. RLQ pain RADIATION DOSAGE (If Supplied By Facility): CTDIvol = ( 10.32 ) mGy, DLP = ( 551.98 ) mGycm TECHNIQUE: Transaxial images were obtained from the dome of the diaphragm to the symphysis pubis without oral contrast, and without intravenous contrast. Sagittal and coronal images were reconstructed. Individualized dose optimization techniques were used for this CT. COMPARISON: None. FINDINGS: The visualized lung bases are unremarkable. The visualized portions of the heart are within normal limits. Normal liver. Normal gallbladder and extrahepatic biliary system. Normal spleen. Normal pancreas. Normal bilateral adrenal glands. Normal right kidney. Normal left kidney. Normal visualized stomach. Normal small intestine. Normal colon. The appendix is visualized and appears normal. Normal abdominal aorta. Normal inferior vena cava. Normal retroperitoneum. Normal urinary bladder. Normal abdominal wall. There is bilateral chronic L5 pars defects without anterolisthesis. CT/Abdomen/Pelvis without Cont IMPRESSION: Negative unenhanced CT of the abdomen and pelvis. Normal appendix. Electronically Signed: Blu Gale MD at 1:17 EDT Tel , Service support ,
[2020-12-04 00:14] LABS: Absolute Lymphocyte Count 2.25 X10^3/uL (0.83-4.51); Absolute Neutrophil Count 7.7 X10^3/uL (2.0-7.7); Basophil# 0.06 X10^3/uL; Basophil% 0.5 % (0-1); Eosinophil# 0.29 X10^3/uL; Eosinophils% 2.5 % (0-5); Hematocrit 45.2 % (40-54); Hemoglobin 14.8 g/dL (13.0-16.5); Lymphocyte # 2.25 X10^3/ul (4.0); Lymphocyte % 19.5 % (19-41); Mean Corp Hgb Conc 32.7 g/dL (32-36); Mean Corpuscular Hgb 31.7 pg (27.0-32.0); Mean Corpuscular Volume 96.8 fL (80-94); Mean Platelet Vol. 10.7 fl (6.2-12.0); Monocyte# 1.19 X10^3/uL; Monocyte% 10.3 % (0-10); NRBC Flagged by Analyzer 0 % (0-5); Neutrophil # 7.68 X10^3/uL (2.7-7.7); Neutrophil % 66.6 % (47-70); Platelet Count 269 K/mm3 (150-450); RBC Distribution Width CV 14.1 % (11.6-14.6); RBC Distribution Width SD 49.4 fl (35.1-43.9); Red Blood Count 4.67 M/mm3 (4.6-6.2); White Blood Count 11.5 K/mm3 (4.4-11.0)
[2020-12-04 00:22] LABS: Bacteria 0 SEEN /hpf (None Seen); Mucous, Urine 0 SEEN /hpf (<or=2+); Red Blood Cells-Urine 0 SEEN /hpf (0-5); Squamous Epithelial Cells - UA 0 SEEN /hpf (0-5); White Blood Cells 0 SEEN /hpf (0-5)
[2020-12-04 00:23] LABS: Color, Urine Yellow (Yellow); Glucose, Dipstick Normal (Normal); Ketone-Dipstick Negative (Negative); Leukocyte Esterase-Dipstick Negative /ul (Negative); Nitrite-Dipstick Negative (Negative); Occult Blood-Urine Negative /ul (Negative); Protein-Dipstick Negative (Negative); Urine Bilirubin Dipstick Negative (Negative); Urine Clarity Clear (Clear); Urine Urobilinogen 1 mg/dl (Normal)
[2020-12-04 00:25] LABS: ALB/GLOB Ratio 1.1 RATIO (0.9-2.4); AST(SGOT) 17 U/L (15-37); Alanine Aminotransfer ALT/SGPT 22 U/L (16-61); Albumin, Serum 3.7 g/dL (3.2-5.0); Alkaline Phosphatase 80 U/L (45-117); Anion Gap 3 (5-15); BUN 14 mg/dL (7-18); BUN/Creat Ratio 12.8 RATIO (10-20); Calcium,Total 8.5 mg/dL (8.5-10.1); Chloride 106 mmol/L (98-107); Creatinine, Serum 1.09 mg/dL (0.70-1.30); EST Glomerular Filtration Rate 78 mL/min (>60); Est Glom Filt Rate - Afr Amer 95 mL/min (>60); Estimated Creatinine Clearance 90.23 ml/min; Globulin 3.3 g/dL (2.2-4.2); Glucose 91 mg/dL (74-106); Lipase 98 U/L (73-393); Sodium Level 139 mmol/L (136-145)
[2020-12-04] MEDS: 0.9% Normal Saline 1,000 ML 999 ML IV (00:32)
--- NOTE | 2020-12-04 01:23 | ED.DCSUM_ITS ---
- ER Visit Summary Date of Service: 12/04/20 Chief Complaint: Abdominal pain History of Present Illness: The patient is a 45 M presenting by EMS. Patient was seen walking [place] [address]. EMS was called. He states he was walking to [place] where he has a place to stay. He is homeless and has no place to stay in [place]. He was seen in the ED 2 times yesterday. He was evaluated by the counseling center at that time. It was felt he did not meet criteria for inpatient psychiatry. He was set up to follow-up with [facility]. He states he has been awake and walking for the last 3 days has not been able to get back to [place]. He denies suicidal ideation. He complains of mid abdominal pain. Denies nausea, vomiting, diarrhea. Denies fevers. Denies other complaints. Physical Examination: Vitals are stable. Patient is afebrile. Alert no acute distress. HEENT exam is unremarkable. Neck is supple. Lungs are clear and equal bilaterally. Heart is regular rate and rhythm. Abdomen is soft mild right lower quadrant tenderness with no guarding or rebound Extremities are unremarkable. Skin is warm and dry. No focal neurologic deficit. Denies suicidal or homicidal ideation Remainder of exam is unremarkable. Emergency Department Course and Treatment: Patient was given IV fluids. CBC shows white count 11.5. Chemistries unremarkable. Liver lipase are normal. Urinalysis unremarkable. Alcohol negative. CT abdomen pelvis shows negative unenhanced CT of the abdomen and pelvis. Normal appendix. On reevaluation, patient is resting comfortably. He denies suicidal ideation. He was given in formation for [facility] for follow-up. Disposition: Discharge Impression: Abdominal pain, homelessness This note was generated with [employer] dictation software. It may contain incorrect words, spelling, and punctuation that were not noted in review of the chart prior to signing ED Disposition - Plan for ED Patient: Referrals: Care Physician,No Primary [Primary Care Provider] -
--- NOTE | 2020-12-04 01:28 | ED.DEP ---
ED Disposition - Plan for ED Patient: Instructions: ED Unknown Causes of Abdominal ... Referrals: Counseling,Center [GROUP OF PHYSICIANS] -
[2020-12-04 01:49] VITALS: BP 158/84; PULSE 72; RESP 18
== END 2020-12-04 01:49 | disposition home or self-care (01) ==
PROVIDERS: Emergency Provider Emergency Medicine
DX: R10.9 Unspecified abdominal pain (principal); Z59.0 Homelessness; I10 Essential (primary) hypertension; E78.00 Pure hypercholesterolemia, unspecified; Z79.899 Other long term (current) drug therapy; F25.0 Schizoaffective disorder, bipolar type; R45.851 Suicidal ideations; S90.822A Blister (nonthermal), left foot, initial encounter; S90.821A Blister (nonthermal), right foot, initial encounter; Y93.9 Activity, unspecified; Y92.9 Unspecified place or not applicable; E78.5 Hyperlipidemia, unspecified; R73.03 Prediabetes; E66.9 Obesity, unspecified; Z68.32 Body mass index [BMI] 32.0-32.9, adult; Z79.84 Long term (current) use of oral hypoglycemic drugs; F17.210 Nicotine dependence, cigarettes, uncomplicated
CPT/HCPCS: 74176; 80053; 80307; 81001; 82077; 83690; 85025; 96360; 99284; J7030

== ENCOUNTER 2020-12-04 21:26 | Emergency (ER) | payer MEDICARE, MEDICAID, SELFPAY ==
[2020-12-03 23:25] VITALS: BMI 33.4
[2020-12-04 21:27] VITALS: BP 190/111; PULSE 99; RESP 18; TEMP 36.3; O2SAT 95; BMI 32.5
--- NOTE | 2020-12-04 22:32 | RAD_ITS ---
STUDY: X-RAY - RIGHT ANKLE REASON FOR EXAM: Male, 45 years old. pain TECHNIQUE: 3 view(s) of the ankle. COMPARISON: None. FINDINGS: Normal visualized distal tibia and fibula. Normal medial and lateral malleoli. Normal tibiotalar articulation and ankle mortise. Normal visualized talus and calcaneus. Mild enthesopathy at the Achilles tendon insertion site. Benign bone island of the medial side of the distal tibial metaphysis. Mild soft tissue swelling is present. The visualized subtalar, talonavicular, calcaneocuboid and tarsal articulations are normal. No visualized fracture. RAD/Ankle min 3 Views IMPRESSION: Mild soft tissue swelling Electronically Signed: Nirav Tee MD at 23:06 EDT , Service support ,
--- NOTE | 2020-12-04 23:09 | ED.DCSUM_ITS ---
- ER Visit Summary Date of Service: 12/04/20 Chief Complaint: Right ankle pain History of Present Illness: The patient is a 45 M presenting with right ankle pain. This is the patient's fifth visit in the past 5 days. Patient is homeless. He has been trying to walk to [place] to get to where he has a pl wali to stay. He is requesting a ride to [place]. He states he has been walking frequently over the past several days. He complains of right ankle pain after rolling his ankle. He is still able to ambulate. He denies suicidal thoughts. Denies other complaints. Physical Examination: Vitals are stable. Patient is afebrile. Alert no acute distress. HEENT exam is unremarkable. Neck is supple. Lungs are clear and equal bilaterally. Heart is regular rate and rhythm. Abdomen is soft nontender nondistended. Extremities mild right ankle tenderness. Normal distal pulses bilaterally. Blister to the plantar surface of second toe bilaterally. Skin is warm and dry. Remainder of exam is unremarkable. Emergency Department Course and Treatment: Right ankle x-ray read by myself and radiology shows mild soft tissue swelling. Patient given Naprosyn. He was given an Aircast. He was advised we are unable to provide him a ride to [place]. He will be discharged. Disposition: Discharge Impression: Right ankle sprain This note was generated with [employer] dictation software. It may contain incorrect words, spelling, and punctuation that were not noted in review of the chart prior to signing ED Disposition - Plan for ED Patient: Instructions: ED Sprain Ankle W X Ray Referrals: Care Physician,No Primary [Primary Care Provider] -
--- NOTE | 2020-12-04 23:22 | ED.DEP ---
ED Disposition - Plan for ED Patient: Instructions: ED Sprain Ankle W X Ray Referrals: Care Physician,No Primary [Primary Care Provider] -
[2020-12-04] MEDS: Naproxen 500 MG Tablet PO (23:33)
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
== END 2020-12-04 23:54 | disposition home or self-care (01) ==
LOC: ED 22:53
PROVIDERS: Emergency Provider Emergency Medicine
DX: S93.401A Sprain of unspecified ligament of right ankle, initial encounter (principal); X50.1XXA Overexertion from prolonged static or awkward postures, initial encounter; Y93.9 Activity, unspecified; Y92.9 Unspecified place or not applicable; Z59.0 Homelessness; F20.9 Schizophrenia, unspecified; Z79.899 Other long term (current) drug therapy
CPT/HCPCS: 73610; 99283

== ENCOUNTER 2020-12-05 19:51 | Emergency (ER) | payer MEDICARE, MEDICAID, SELFPAY ==
[2020-12-04 21:27] VITALS: BMI 32.5
[2020-12-05 19:53] VITALS: BP 163/98; PULSE 87; RESP 18; TEMP 36.6; O2SAT 97; BMI 38.9
--- NOTE | 2020-12-05 20:17 | ED.DCSUM_ITS ---
- ER Visit Summary Date of Service: 12/05/20 Chief Complaint: [Bilateral foot pain] History of Present Illness: The patient is a 45 M [resents to the emergency department with complaint of foot pain for over a week. Patient states that has been walking a lot. He states that he injured his ankle and was on crutches last week. He is somewhat of a poor historian. Patient has history of diabetes, hypertension, high cholesterol, schizophrenia, and bipolar disorder. His primary care physician is in [place]. Patient denies any other direct trauma.] Physical Examination: [HEENT-PERRLA, EOMI. Cranial nerves II through XII grossly intact. TMs clear. Mucous membranes moist. No adenopathy. Cardiovascular-regular rate and rhythm without murmur or ectopy Lungs-clear to auscultation, chest wall stable without crepitus or subcu emphysema Abdomen-normoactive bowel sounds, soft, nontender, no rebound or rigidity, no peritoneal signs. Extremities-intact ?4, normal range of motion, normal pulses. Right foot- patient does have appears to be a blister between the first and second toes with some wet macerated skin noted. Minimal faint erythema noted. Mild discomfort over the first and second and third metatarsals. No ecchymosis or bruising noted. No significant soft tissue swelling noted. Left foot-no significant soft tissue swelling or ecchymosis noted. He had some mild diffuse tenderness to palpation.] Test Results: [3 view x-rays of bilateral feet obtained interpreted by myself as no acute fractures or dislocations. Official reports pending from radiology.] Emergency Department Course and Treatment: [Patient was started on Keflex 500 mg p.o.] Treatment Plan: [Patient will be given a prescription for naproxen and a prescription for Keflex.] Disposition: [Discharged home in stable condition] Impression: [Bilateral foot pain Cellulitis right foot] This note was generated with [employer] dictation software. It may contain incorrect words, spelling, and punctuation that were not noted in review of the chart prior to signing ED Disposition - Plan for ED Patient: Referrals: Care Physician,No Primary [Primary Care Provider] -
--- NOTE | 2020-12-05 20:27 | RAD_ITS ---
STUDY: X-RAY - LEFT FOOT CLINICAL: Male, 45 years old. pain TECHNIQUE: 3 view(s) of the foot. COMPARISON: None. FINDINGS: Normal talus, calcaneus, and tarsal bones. Dorsal enthesophyte of the calcaneus and a plantar spur. Normal visualized subtalar, talonavicular, calcaneocuboid, tarsal and tarsometatarsal articulations. Normal metatarsi. There is degenerative arthrosis of the metatarsophalangeal joint of the hallux . Normal tibial and fibular sesamoid bones. Normal interphalangeal joint of the great toe. Normal phalanges of the great toe. Normal second through fifth metatarsophalangeal joints. Normal interphalangeal joints and phalanges of the lesser toes. The soft tissue structures are unremarkable. RAD/Foot min 3 Views IMPRESSION: Negative for fracture or dislocation. Dorsal enthesophyte and plantar spur of the calcaneus. Mild degenerative arthrosis of the first metatarsophalangeal joint. Electronically Signed: Asha Lawton MD at 22:05 EDT , Service support ,
--- NOTE | 2020-12-05 20:27 | RAD_ITS ---
STUDY: X-RAY - RIGHT FOOT CLINICAL: Male, 45 years old. PAIN TECHNIQUE: 3 view(s) of the foot. COMPARISON: None. FINDINGS: Normal talus, calcaneus, and tarsal bones. Dorsal enthesophyte of the calcaneus and a minimal plantar spur. Normal visualized subtalar, talonavicular, calcaneocuboid, tarsal and tarsometatarsal articulations. Normal metatarsi. There is degenerative arthrosis of the metatarsophalangeal joint of the hallux . Normal tibial and fibular sesamoid bones. Normal interphalangeal joint of the great toe. Normal phalanges of the great toe. Normal second through fifth metatarsophalangeal joints. Normal interphalangeal joints and phalanges of the lesser toes. The soft tissue structures are unremarkable. RAD/Foot min 3 Views IMPRESSION: Negative for fracture or dislocation. Dorsal enthesophyte and a minimal plantar spur of the calcaneus. Mild degenerative arthrosis of the first metatarsophalangeal joint. Electronically Signed: Asha Lawton MD at 22:01 EDT , Service support ,
--- NOTE | 2020-12-05 22:04 | ED.DEP ---
ED Disposition - Plan for ED Patient: Instructions: ED Cellulitis, ED Foot Sprain Prescriptions: Cephalexin [Keflex] 500 mg PO Q6 #40 capsule Prescription Printed Naproxen [Naprosyn] 500 mg PO BID PRN #20 tablet Prescription Printed Referrals: Care Physician,No Primary [Primary Care Provider] - Ayesha Zeng MD [STAFF PHYSICIAN] - 3-5 Days
[2020-12-05] MEDS: Cephalexin 250 MG Capsule 500 MG PO (22:19)
[2020-12-05] MEDS: Naproxen 250 MG Tablet 500 MG PO (22:20)
[2020-12-05 22:21] VITALS: RESP 16
== END 2020-12-05 22:22 | disposition home or self-care (01) ==
PROVIDERS: Emergency Provider Emergency Medicine
DX: L03.115 Cellulitis of right lower limb (principal); L03.116 Cellulitis of left lower limb; S90.821A Blister (nonthermal), right foot, initial encounter; X58.XXXA Exposure to other specified factors, initial encounter; Y93.9 Activity, unspecified; Y92.9 Unspecified place or not applicable; E11.9 Type 2 diabetes mellitus without complications; I10 Essential (primary) hypertension; F20.9 Schizophrenia, unspecified; F31.9 Bipolar disorder, unspecified; E78.00 Pure hypercholesterolemia, unspecified; Z79.84 Long term (current) use of oral hypoglycemic drugs; Z79.899 Other long term (current) drug therapy; F17.200 Nicotine dependence, unspecified, uncomplicated
CPT/HCPCS: 73630; 99283

== ENCOUNTER 2021-06-09 16:23 | Emergency (ER) | payer MEDICARE, MEDICAID, SELFPAY ==
[2021-06-09 16:24] VITALS: BP 148/94; PULSE 94; RESP 16; TEMP 36.5; O2SAT 95
--- NOTE | 2021-06-09 16:48 | EKG12_ITS ---
Test Reason : MENTAL CLEARANCE Blood Pressure : / mmHG Vent. Rate : 076 BPM Atrial Rate : 076 BPM P-R Int : 158 ms QRS Dur : 086 ms QT Int : 362 ms P-R-T Axes : 056 097 025 degrees QTc Int : 407 ms Normal sinus rhythm with sinus arrhythmia Normal ECG Confirmed by VICENTE CHINO, VANI ([id number]), photo editor SANDRA MCCLENDON ([id number]) on 06/11/2021 9:28:59 AM Referred By: FRANC Confirmed By:VANI ZHANG MD
--- NOTE | 2021-06-09 16:51 | NURSING ---
NO OLD EKGS
[2021-06-09 16:56] LABS: Absolute Lymphocyte Count 1.77 X10^3/uL (0.83-4.51); Absolute Neutrophil Count 10.4 X10^3/uL (2.0-7.7); Basophil# 0.02 X10^3/uL; Basophil% 0.1 % (0-1); Eosinophil# 0.12 X10^3/uL; Eosinophils% 0.9 % (0-5); Hematocrit 47.1 % (40-54); Hemoglobin 15.5 g/dL (13.0-16.5); Lymphocyte # 1.77 X10^3/ul (0.83-4.51); Lymphocyte % 13.1 % (19-41); Mean Corp Hgb Conc 32.9 g/dL (32-36); Mean Corpuscular Hgb 31.8 pg (27.0-32.0); Mean Corpuscular Volume 96.7 fL (80-94); Mean Platelet Vol. 10.1 fl (6.2-12.0); Monocyte# 1.17 X10^3/uL; Monocyte% 8.7 % (0-10); NRBC Flagged by Analyzer 0 % (0-5); Neutrophil # 10.39 X10^3/uL (2.7-7.7); Neutrophil % 76.8 % (47-70); Platelet Count 253 K/mm3 (150-450); RBC Distribution Width CV 12.7 % (11.6-14.6); RBC Distribution Width SD 45.5 fl (35.1-43.9); Red Blood Count 4.87 M/mm3 (4.6-6.2); White Blood Count 13.5 K/mm3 (4.4-11.0)
[2021-06-09 17:23] LABS: Anion Gap 6 (5-15); BUN 14 mg/dL (7-18); BUN/Creat Ratio 13.9 RATIO (10-20); Calcium,Total 9.1 mg/dL (8.5-10.1); Chloride 106 mmol/L (98-107); Creatinine, Serum 1.01 mg/dL (0.70-1.30); EST Glomerular Filtration Rate 85 mL/min (>60); Est Glom Filt Rate - Afr Amer 103 mL/min (>60); Estimated Creatinine Clearance 0.12 ml/min; Glucose 108 mg/dL (74-106); Sodium Level 138 mmol/L (136-145)
[2021-06-09 17:50] VITALS: RESP 18
[2021-06-09 17:53] LABS: Acetaminophen (Tylenol) Level < 2.0 ug/mL (10.0-30.0); Salicylate 2.3 mg/dL (2.8-20.0)
[2021-06-09 18:05] VITALS: BP 100/59; PULSE 75; RESP 14
--- NOTE | 2021-06-09 18:05 | ED.RN ---
Awake, eating dinner.
--- NOTE | 2021-06-09 18:14 | ED.RN ---
Documented vitals on wrong chart, corrected.
[2021-06-09 19:09] VITALS: BP 126/86; PULSE 64; RESP 18
[2021-06-09 19:13] LABS: Bacteria 0 SEEN /hpf (None Seen); Mucous, Urine 0 SEEN /hpf (<or=2+); Red Blood Cells-Urine 0 SEEN /hpf (0-5); White Blood Cells 0 SEEN /hpf (0-5)
[2021-06-09 19:26] LABS: Color, Urine Yellow (Yellow); Glucose, Dipstick Normal (Normal); Ketone-Dipstick 50 mg/dl (Negative); Leukocyte Esterase-Dipstick Negative /ul (Negative); Nitrite-Dipstick Negative (Negative); Occult Blood-Urine Negative /ul (Negative); Protein-Dipstick 15 mg/dl (Negative); Urine Bilirubin Dipstick Negative (Negative); Urine Clarity Sl. Cloudy (Clear); Urine Urobilinogen 8 mg/dl (Normal); Urine pH 6.5 (5.0 - 8.0)
[2021-06-09 19:54] LABS: Amphetamine Urine VISTA POSITIVE (<1000 ng/mL); Barbiturate Urine VISTA NEGATIVE (< 200 ng/mL); Benzodiazepine Urine VISTA NEGATIVE (< 200 ng/mL); Cocaine Urine VISTA NEGATIVE (< 300 ng/mL); Ecstacy Urine VISTA NEGATIVE (< 500 ng/mL); Methadone Urine VISTA NEGATIVE (< 300 ng/mL); PCP Urine VISTA NEGATIVE (< 25 ng/mL); THC Urine VISTA POSITIVE (< 50 ng/mL); Vista UDS pH Range 6
[2021-06-09 19:59] LABS: Squamous Epithelial Cells - UA 0-5 SEEN /hpf (0-5)
[2021-06-09 20:00] VITALS: RESP 18
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
--- NOTE | 2021-06-09 20:07 | CM.ED ---
SOCIAL WORK Referral faxed and called to [facility] and [facility]. Pending review at this time. Huseyin Palencia, KITCHEN UTILITY ASSOCIATE, BURIAL VAULT MAKER
--- NOTE | 2021-06-09 20:37 | CM.ED ---
SOCIAL WORK Received call from Sis with [facility] with questions. All questions answered. Sis to review with provider and call this worker back. Huseyin Palencia, STAFF WRITER, CREDIT ADMINISTRATION SPECIALIST
--- NOTE | 2021-06-09 20:53 | CM.ED ---
SOCIAL WORK Patient accepted to [facility] by Dr. Esqueda to the Dual Diagnosis Unit. Nurse to call report to option 1. [place] Slip to be faxed per request. Call to [facility] to set up transport, ETA 5-6 hours. Staff luis m. Huseyin Palencia MSW, RIGGING FOREMAN
--- NOTE | 2021-06-09 21:07 | ED.RN ---
PHYSICIANS CALLED AND SAID THAT THEY WOULD BE GIVING IT TO THEIR MORNING CREW INSTEAD OF THE 4-6 HOUR ETA. I ASKED THEM TO OUT SOURCE IT.
[2021-06-09 22:26] VITALS: RESP 16
--- NOTE | 2021-06-09 23:14 | ED.RN ---
PHYSICIANS CALLED BACK AND SAID THAT THEY WOULD NOT BE GETTING A RIDE OUT OF HERE UNTIL AFTER 0600.
[2021-06-10] VITALS (9 sets, daily range): BP systolic 110; BP diastolic 68–78; PULSE 72–80; RESP 16–18; TEMP 36.2; O2SAT 95–100
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
--- NOTE | 2021-06-10 07:12 | NURSING ---
SQUAD WILL BE HERE ABOUT 832
== END 2021-06-10 08:51 ==
PROVIDERS: Emergency Provider Emergency Medicine
DX: R45.851 Suicidal ideations (principal); F17.210 Nicotine dependence, cigarettes, uncomplicated
CPT/HCPCS: 36415; 80048; 80307; 80329; 81001; 82077; 85025; 87426; 93005; 99285; G0480